=== PATIENT | female | born 1965 | race Caucasian/White ===

== ENCOUNTER 2020-07-17 17:41 | Emergency (ER) | payer OTHER, SELFPAY ==
--- NOTE | ~2020-07-17 | CT_ITS ---
EXAMINATION: CT cervical spine [facility] EXAM DATE: 07/17/2020 19:59 INDICATION: Neck pain left arm numbness. TECHNIQUE: Spiral CT of the cervical spine was performed without contrast. Axial images were reviewe d. Coronal and sagittal reformatted images cervical spine were also reviewed. The dose-length produc t (DLP) for this examination was 372.28 mGy-cm. The exposure was tailored according to patient size (auto mA exposure control), and iterative reconstruction (ASIR) was used as additional dose reduction technique. There is no prior study for comparison. FINDINGS: There is moderate loss of the disc height at C4-5 and C6-7. 2 mm anterolisthesis C3 on C 4. Mild disc disease C7-T3. There are no acute fractures identified. The odontoid process is intact. The lateral masses of C1 line up with C2. Prevertebral soft tissue and pre-dens space are within nor mal limits. Level by level evaluation: C2-C3: There is a mild diffuse disc bulge. Uncovertebral joint arthropathy: None. Facet joint arthropathy: Severe left. Neural foraminal stenosis: Mild to moderate left. Central canal stenosis: No stenosis. C3-C4: There is a mild diffuse disc bulge. Uncovertebral joint arthropathy: Mild to moderate left, mild right. Facet joint arthropathy: Severe left, mild right. Neural foraminal stenosis: Severe left. Central canal stenosis: No stenosis. C4-C5: There is a mild diffuse disc bulge. Uncovertebral joint arthropathy: Moderate right, mild left. Facet joint arthropathy: Moderate right, mild to moderate left . Neural foraminal stenosis: Moderate right, mild left. Central canal stenosis: Mild. C5-C6: There is a minimal diffuse disc bulge. Uncovertebral joint arthropathy: Mild to moderate left, mild right. Facet joint arthropathy: Moderate right, mild left. Neural foraminal stenosis: Minimal left. Central canal stenosis: No stenosis. C6-C7: There is a mild diffuse disc bulge. Uncovertebral joint arthropathy: Severe left, moderate to severe right. Facet joint arthropathy: Mild to moderate bilateral. Neural foraminal stenosis: Moderate to severe left, moderate right. Central canal stenosis: Mild. C7-T1: Disc does not extend beyond the endplate margin. Uncovertebral joint arthropathy: None. Facet joint arthropathy: Severe left. Neural foraminal stenosis: No stenosis. Central canal stenosis: No stenosis. IMPRESSION: Scattered multilevel cervical spondylosis, advanced arthritis at some joints. Reviewed, dictated and finalized at location G. IMPRESSION: Scattered multilevel cervical spondylosis, advanced arthritis at so me joints.
--- NOTE | ~2020-07-17 | XR_ITS ---
EXAMINATION: XR_CERV2-3V_CR EXAM DATE: 07/17/2020 18:08 INDICATION: No known recent injury provided at this time. Pain of the cervical spine. TECHNIQUE: Cervical spine frontal, lateral, lateral swimmers, and open-mouth odontoid projections. There is no prior study for comparison. FINDINGS: Straightening of normal cervical lordosis could be degenerative, positional or spasm. Ther e is no evidence of acute cervical fracture. The odontoid process is intact. Pre-dens space is norm al. Prevertebral soft tissue is normal. There are no soft tissue abnormalities identified. There i s moderate loss of the C4-5 and C6-7 disc height. Evidence of moderate uncovertebral joint arthropath y from C4 through C7, and moderate left facet arthropathy at C3-4. Less arthropathy at the other leve ls. The vertebral bodies are aligned. IMPRESSION: Cervical straightening. Up to moderate mid cervical spondylosis. Reviewed, dictated and finalized at location A.
[2020-07-17 17:43] VITALS: BP 212/75; PULSE 111; RESP 20; TEMP 36.6; O2SAT 97
--- NOTE | 2020-07-17 19:37 | PC.NURSE ---
EDMD presented to bedside.
--- NOTE | 2020-07-17 19:55 | PC.NURSE ---
Pt to ct via cart.
--- NOTE | 2020-07-17 19:59 | ED.GENADULT ---
HPI - General Adult General Chief complaint: Neck Pain/Injury Stated complaint: neck pain Time Seen by Provider: 07/17/20 19:23 History of Present Illness HPI narrative: Patient is a 55-year-old female who presents the emergency department with chief complaint of neck pain. The patient reports she has history of neck pain and gets trigger point injections by her orthopedic surgeon over in the [place] area. Patient reports that she lifted a 40 pound box of chlorine for the pool and reported after that she started having pain in her neck the patient states that the pain radiates to her left shoulder area and she has a little bit of a tingling sensation in her upper shoulder. The patient states the pain is worse with movement and improved with rest the patient states she applied a cool pack to the area and left it on too long and suffered a slight burn to her shoulder area. 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 Nursing and ancillary documentation was reviewed. [facility] Past Medical History Medical History Chronic pancreatitis Degenerative disc disease, cervical Essential (primary) hypertension GERD without esophagitis Osteoarthritis Pancreas divisum of [place] pancreas Surgical History Surgical History History of ERCP History of knee replacement (~2017) Left knee - 2017 Family History Family History Mother Hypertension Father Family history of lung cancer Social History Social History Smoking packs per day: 1 Smoking cigarettes per day: 20.0 Years smoked: 35 Smoking pack-years: 35.00 Smoking status: Current every day smoker Tobacco type: cigarettes Second hand tobacco smoke exposure: No Additional smoking assessment comments: consumes 1-9 cigarettes daily Alcohol intake: never Substance use: never Substance use type: does not use Gender identity (if verbalized by the patient): Female Exam Narrative: Exam Narrative: GENERAL: Well-appearing, well-nourished, and in no acute distress. HEAD: Normocephalic, atraumatic. EYES: PERRLA and EOMI. ENT: Nares clear, no rhinorrhea or epistaxis. Mucous membranes moist. NECK: Supple. There is tenderness to palpation in the upper shoulder/low neck CHEST: Clear to auscultation. No respiratory distress. HEART: Regular rate and rhythm. No murmur heard. Normal peripheral pulses. ABDOMEN: Soft, nontender, nondistended, normal active bowel sounds. EXTREMITIES: Normal range of motion. No edema. SKIN: Warm, dry, no rash. There is a first-degree burn present in the left shoulder area NEURO: No focal deficits. Alert and oriented x3. PSYCH: Normal mood and affect. Course Vital Signs Vital signs: Vital Signs Temperature 36.6 C 07/17/20 17:43 Pulse Rate 111 H 07/17/20 17:43 Respiratory Rate 20 07/17/20 17:43 Blood Pressure 212/75 H 07/17/20 17:43 Pulse Oximetry 97 07/17/20 17:43
--- NOTE | 2020-07-17 20:08 | PC.NURSE ---
Pt returned from ct.
[2020-07-17] MEDS: HYDROmorphone HCL INJ (*CRX) 1 MG/ML SYR IM (20:09)
[2020-07-17] MEDS: diazePAM INJ (*CRX) 10 MG/2 ML SYRINGE 5 MG IM (20:10)
--- NOTE | 2020-07-17 20:15 | PC.NURSE ---
Pt presents to ED with complaints or neck pain for the past three days. States pain is radiating down left shoulder and is rated 10/10 at this time. Pt noted with this chronic issue and receives trigger point injections. Per , pt lifted a 4 gallon bucket of pool chlorine from their truck on Saturday and pain has been persistent since. Pt alert and oriented x4 and resting on cart in its lowest position with call button and personal items within reach. States she missed her dose of metoprolol and BP is currently elevated. at bedside and both have been updated on poc. Pt advises to press call button for assistance.
[2020-07-17 20:19] VITALS: BP 181/71; PULSE 100; RESP 18; TEMP 36.8; O2SAT 95
--- NOTE | 2020-07-17 20:54 | PC.NURSE ---
Pt resting on cart with at bedside and is happy and smiling. Denies all pain and discomfort at this time and states she feels better. Pt alert and oriented x4 and in no obvious distress with stable vitals. Prepared from [facility].
[2020-07-17 20:55] VITALS: BP 142/52; PULSE 88; RESP 18; O2SAT 95
[2020-07-17 20:56] VITALS: BP 142/52; PULSE 88; RESP 18; O2SAT 95
== END 2020-07-17 20:57 | disposition home or self-care (01) ==
PROVIDERS: Emergency Provider Emergency Medicine; PCP Physician Assistant
DX: S16.1XXA Strain of muscle, fascia and tendon at neck level, initial encounter (principal); I10 Essential (primary) hypertension; K86.1 Other chronic pancreatitis; M50.30 Other cervical disc degeneration, unspecified cervical region; K21.9 Gastro-esophageal reflux disease without esophagitis; M19.90 Unspecified osteoarthritis, unspecified site; Z96.652 Presence of left artificial knee joint; F17.210 Nicotine dependence, cigarettes, uncomplicated; X50.9XXA Other and unspecified overexertion or strenuous movements or postures, initial encounter
CPT/HCPCS: 72040; 72125; 96372; 99284; J1170; J3360

== ENCOUNTER → 2021-05-11 09:30 | Outpatient (CLI) | payer OTHER, SELFPAY ==
[2021-05-11 11:08] LABS: SARS-CoV-2 RNA PCR Negative
== END ==
PROVIDERS: PCP Family Medicine; Visit Provider Physician Assistant
DX: Z20.822 Contact with and (suspected) exposure to COVID-19 (principal)
CPT/HCPCS: C9803; U0003; U0005

== ENCOUNTER 2021-05-25 16:10 | Emergency (ER) | payer OTHER, SELFPAY ==
[2021-05-25 16:12] VITALS: BP 150/77; PULSE 128; RESP 17; TEMP 36.2; O2SAT 97
--- NOTE | 2021-05-25 17:18 | ED.ABDPAIN ---
HPI - Abdominal Pain General Chief Complaint: Abdominal Pain Stated Complaint: abd pain, n/v Time Seen by Provider: 05/25/21 17:17 Source: patient Mode of arrival: ambulatory Limitations: no limitations History of Present Illness HPI narrative: Patient is a 56-year-old female who presents to the ED with report of N/V/D. Patient reports she was around her great nephew this past weekend who she believes had a stomach bug with N/V/D. She then developed diarrhea on Saturday night. She reports having several episodes of diarrhea per day. No blood in the stool. She also reports having nausea and vomiting and states she is unable to keep down any food or fluid. No blood in the vomit. Patient reports having mild cramping in her lower abdomen from the vomiting and diarrhea, but also reports having sharp left upper abdominal pain. Patient has history of pancreatic divisum and sphincter of Oddi dysfunction. She sees a specialist for this at [facility]. She does report her left upper abdominal pain feels similar to her previous episodes of pancreatitis. Last episode was around 1 year ago. No fever, chills, chest pain, shortness of breath, urinary sx's. Patient does feel like her heart is beating fast. She takes Metoprolol daily and took this today, but is unsure if she was able to keep it down. Related Data Home Medications Medication Instructions Recorded Confirmed dicyclomine 10 mg capsule 10 mg PO TID cap 08/25/19 07/20/20 [id number] 2 cap PO TID cap 08/25/19 07/20/20 25,000-79,000-105,000 unit capsule,delayed rel pantoprazole 40 mg tablet,delayed 40 mg PO QAM 08/25/19 07/20/20 release Allergies Allergy/AdvReac Type Severity Reaction Status Date / Time tobramycin Allergy Unknown Rash Verified 05/25/21 18:01 oxycodone AdvReac Severe pancreatiti Verified 05/25/21 18:01 s lidocaine patch - [facility] Allergy Severe Rash Uncoded 07/20/20 11:34 brand Review of Systems Review of Systems: CONSTITUTIONAL: Denies fever, chills, or sweats. CARDIOVASCULAR: Reports palpitations. Denies chest pain. RESPIRATORY: Denies dyspnea. GASTROINTESTINAL: Reports lower abd cramping, LUQ abdominal pain, nausea, vomiting, and diarrhea. Denies rectal bleeding, hematemesis. GENITOURINARY: Denies dysuria or hematuria. MUSCULOSKELETAL: Denies back pain, joint pain, or myalgia. NEUROLOGIC: Denies headache, numbness, or weakness. All systems reviewed & are unremarkable except as noted in HPI and below PMFSH Past Medical History Medical History Chronic pancreatitis Degenerative disc disease, cervical Essential (primary) hypertension GERD without esophagitis Osteoarthritis Pancreas divisum of [place] pancreas Sphincter of Oddi dysfunction Surgical History Surgical History History of ERCP History of knee replacement (~2016) Left knee - 2017 Family History Family History Mother Hypertension Father Family history of lung cancer Social History Social History Smoking packs per day: 1 Smoking cigarettes per day: 20.0 Years smoked: 35 Smoking pack-years: 35.00 Smoking status: Current every day smoker Tobacco type: cigarettes Second hand tobacco smoke exposure: No Additional smoking assessment comments: consumes 1-9 cigarettes daily Alcohol intake: never Substance use: never Substance use type: does not use Gender identity (if verbalized by the patient): Female Exam Narrative: GENERAL: Mildly ill appearing, well-nourished, non-toxic, in no acute distress. HEAD: Normocephalic, atraumatic. EYES: EOMI, conjunctivae clear bilaterally. THROAT: Pharynx clear, no exudate. MMs dry. NECK: Supple. No adenopathy, no masses. RESPIRATORY: Airway patent, respirations
[2021-05-25 17:45] LABS: Basophils Absolute Auto 0.1 K/mm3 (0.0-0.1); Basophils Percent Auto 0.5 % (0.2-1.2); Eosinophils Percent Auto 0.1 % (0-4.4); Hematocrit 54.6 % (37.0-47.0); Hemoglobin 18.1 g/dL (12.0-15.0); Immature Granulocyte Absolute 0.03 K/mm3 (0.00-0.031); Immature Granulocyte Percent A 0.3 % (0-0.5); Lymphocytes Absolute Auto 1.78 K/mm3 (0.9-3.2); Lymphocytes Percent Auto 16.1 % (18.3-44.2); Mean Corpuscular HGB Conc 33.2 g/dl (32-36); Mean Corpuscular Volume 87.4 fl (80-100); Monocytes Absolute Auto 1.5 K/mm3 (0.1-0.6); Monocytes Percent Auto 13.7 % (2.6-8.5); Neutrophils Absolute Auto 7.7 K/mm3 (1.3-6.7); Neutrophils Percent Auto 69.3 % (45.5-73.1); Platelet Count Result 303 k/mm3 (150-375); Red Blood Count 6.25 M/mm3 (4.2-5.4); Red Cell Distribution Width 15.4 % (11.5-14.5); White Blood Count 11.1 K/mm3 (4.5-10.0)
[2021-05-25] MEDS: SODIUM CHLORIDE 0.9% IV 1,000 ML 999 ML IV CONT ×2 (17:51→19:37)
[2021-05-25] MEDS: ONDANSETRON INJ 4 MG/2 ML VIAL IV PUSH (17:52)
[2021-05-25 17:56] LABS: Alanine Aminotransferase 24 U/L (4-35); Albumin Level 4.9 g/dL (3.5-5.1); Alkaline Phosphatase 149 U/L (38-126); Anion Gap 16 mmol/L (8-16); Aspartate Amino Transferase 38 U/L (14-36); Bilirubin,Total 0.5 mg/dL (0.2-1.3); Blood Urea Nitrogen 25 mg/dL (7-17); Calcium 9.7 mg/dL (8.4-10.2); Carbon Dioxide 10 mmol/L (22-30); Chloride 111 mmol/L (98-107); Estimated CRCL calculation 29 ml/min; Estimated Glomerular Filt Rate 27; Glucose 132 mg/dL (65-110); Lipase 177 U/L (23-300); Sodium 137 mmol/L (137-145)
[2021-05-25 18:00] VITALS: BP 152/72; PULSE 99; RESP 20; O2SAT 97
[2021-05-25 19:01] VITALS: BP 150/73; PULSE 93; RESP 23; O2SAT 96
--- NOTE | 2021-05-25 19:33 | PC.NURSE ---
Report from Cat/Anil
[2021-05-25 19:43] LABS: Add Urine Microscopic? YES; Appearance Urine Cloudy (Clear); Bacteria Urine Trace /hpf; Bilirubin Urine Negative (Negative); Blood Urine 1+ (Negative); Color Urine Yellow (Yellow); Glucose Urine UA Negative (Negative); Hyaline Casts Urine 50+ /lpf; Ketones Urine Negative (Negative); Leukocyte Esterase Ur Negative LEU/UL (Negative); Mucus Urine Rare /lpf; Nitrate Urine Negative (Negative); Protein Urine 2+ mg/dL (Negative); Specific Grav Ur 1.024 (1.001-1.035); Squamous Epithelial Cell Urine Few /hpf (Few); Urobilinogen Urine Negative mg/dL (<2.0)
--- NOTE | 2021-05-25 19:57 | PC.NURSE ---
Pt updated waiting on IV fluids to infuse. Pt and updated. Pt has no other needs at this time..
[2021-05-25 20:51] LABS: Anion Gap 8 mmol/L (8-16); Blood Urea Nitrogen 24 mg/dL (7-17); Calcium 7.9 mg/dL (8.4-10.2); Carbon Dioxide 14 mmol/L (22-30); Chloride 115 mmol/L (98-107); Estimated CRCL calculation 45 ml/min; Estimated Glomerular Filt Rate 46; Glucose 99 mg/dL (65-110); Sodium 137 mmol/L (137-145)
[2021-05-25] MEDS: PROMETHAZINE HCL 25 MG/ML AMPUL 12.5 MG IV PUSH (21:47)
[2021-05-25 21:51] VITALS: BP 151/68; PULSE 77; RESP 18; O2SAT 93
== END 2021-05-25 22:02 | disposition home or self-care (01) ==
PROVIDERS: Physician Assistant; Emergency Provider Emergency Medicine; PCP Family Medicine
DX: R11.2 Nausea with vomiting, unspecified (principal); R19.7 Diarrhea, unspecified; R79.89 Other specified abnormal findings of blood chemistry; K86.1 Other chronic pancreatitis; K83.4 Spasm of sphincter of Oddi; I10 Essential (primary) hypertension; K21.9 Gastro-esophageal reflux disease without esophagitis; M19.90 Unspecified osteoarthritis, unspecified site; Z96.652 Presence of left artificial knee joint; F17.210 Nicotine dependence, cigarettes, uncomplicated; R82.998 Other abnormal findings in urine
CPT/HCPCS: 36415; 80048; 80053; 81001; 83690; 85025; 87077; 87086; 87088; 87186; 96361; 96365; 96375; 99284; J0131; J2405; J2550; J7030

== ENCOUNTER 2021-12-30 08:03 | Emergency (ER) | payer OTHER, SELFPAY ==
--- NOTE | 2021-12-30 08:06 | ED.SKABFB ---
HPI - Skin/Abscess/Foreign Bdy General Chief complaint: Skin/Abscess/Foreign Body Stated complaint: rash around whole body Time Seen by Provider: 12/30/21 08:06 Source: patient Mode of arrival: ambulatory Limitations: no limitations History of Present Illness HPI narrative: Gladis is a 48-year-old female patient presenting to the clinic today with complaints of rash all over her body. She reports symptoms have been ongoing x2-3 weeks. She denies any fever chills. Reports that she has been under some stress here lately. She does have a fever blister to the left upper lip. Denies any environmental changes, new foods, or new medications. Is concerned that she may have scabies. Related Data Home Medications Medication Instructions Recorded Confirmed [id number]-wadwcsbi-[id number] 2 cap PO TID 08/25/19 05/31/21 25,000-79,000-105,000 unit capsule,delayed rel (Zenpep) pantoprazole 40 mg tablet,delayed 40 mg PO QAM 08/25/19 05/31/21 release Allergies Allergy/AdvReac Type Severity Reaction Status Date / Time tobramycin Allergy Unknown Rash Verified 05/31/21 11:27 oxycodone AdvReac Severe pancreatiti Verified 05/31/21 11:27 s lidocaine patch - [facility] Allergy Severe Rash Uncoded 07/20/20 11:34 brand Review of Systems Review of Systems: Pertinent positives per HPI. Patient denies any fever, chills, rash, headache, visual changes, dizziness, cough, runny nose, sore throat, shortness of breath, chest pain, palpitations, nausea, vomiting, diarrhea, constipation, abdominal pain, or any urinary issues. [facility] Past Medical History Medical History Aortic regurgitation Chronic pancreatitis Degenerative disc disease, cervical Essential (primary) hypertension GERD without esophagitis Mitral valve insufficiency Osteoarthritis Pancreas divisum of [place] pancreas Sphincter of Oddi dysfunction Surgical History Surgical History History of ERCP History of knee replacement (~2016) Left knee - 2017 Family History Family History Mother Hypertension Father Family history of lung cancer Social History Social History Smoking packs per day: 1 Smoking cigarettes per day: 20.0 Years smoked: 35 Smoking pack-years: 35.00 Smoking status: Former smoker Tobacco type: cigarettes Second hand tobacco smoke exposure: No Alcohol intake: never Substance use: never Substance use type: does not use Gender identity (if verbalized by the patient): Female Comments At the time of my signature, I reviewed and agree with the nursing past medical, surgical, social, and family history. There is no relevant family history pertinent to the patient complaint. Exam Narrative: General: Well-developed, well nourished, in no apparent distress Head: Normocephalic, atraumatic. Cardio: Regular rate and rhythm, s1 and s2 normal, no murmur appreciated. Resp: Clear to auscultation bilaterally, no rhonchi, rales, wheezing or rubs. Integumentary: [employer], warm, and dry, intact without lesion, no rashes. Dry itchy skin, palms are red and itchy Course Course Emergency Course: Portions of this record may have been created with voice recognition software. Level of Care: Express Care Visit Vital Signs Vital signs: Vital Signs Temperature 36.5 C 12/30/21 08:14 Pulse Rate 88 12/30/21 08:14 Respiratory Rate 18 12/30/21 08:14 Blood Pressure 163/74 H 12/30/21 08:14 Pulse Oximetry 99 12/30/21 08:14 Oxygen Delivery Room Air 12/30/21 08:14 Temperature 36.5 C 12/30/21 08:14 Pulse Rate 88 12/30/21 08:14 Respiratory Rate 18 12/30/21 08:14 Blood Pressure 163/74 H 12/30/21 08:14 Pulse Oximetry 99 12/30/21 08:14 Oxygen Delivery Room Air
[2021-12-30 08:14] VITALS: BP 163/74; PULSE 88; RESP 18; TEMP 36.5; O2SAT 99
== END 2021-12-30 08:30 | disposition home or self-care (01) ==
PROVIDERS: Emergency Provider Nurse Practitioner Family; PCP Family Medicine
DX: L85.3 Xerosis cutis (principal); I10 Essential (primary) hypertension; Z87.891 Personal history of nicotine dependence
CPT/HCPCS: 99213; G0463

== ENCOUNTER → 2022-06-25 08:13 | Outpatient (CLI) | payer OTHER, SELFPAY ==
--- NOTE | ~2022-06-25 | XR_ITS ---
EXAMINATION: XR sacroiliac joints min 3V INDICATION: Sacroiliitis, not elsewhere classified TECHNIQUE: Three views of the sacroiliac joints are obtained. COMPARISON: None available FINDINGS: Bone alignment is normal. There is no fracture. There is no abnormal sclerosis or erosion o f the sacroiliac joints. Severe lower lumbar spondylosis is noted. IMPRESSION: 1. No acute osseous abnormality. Reviewed, dictated and finalized at location B.
--- NOTE | ~2022-06-25 | XR_ITS ---
EXAMINATION: XR lumbar spine min 4V DATE: 06/25/2022 08:46 INDICATION: Low back pain, unspecified. TECHNIQUE: 5 views of lumbar spine were obtained. COMPARISON: None. FINDINGS: There is 8 degrees levocurvature of thoracolumbar spine. Vertebral body heights are normal. There is 3 mm retrolisthesis of L1 on L2. There is severely decreased disc height at L1-L2, moderate ly decreased disc height at L2-L3 and L3-L4, severely decreased disc height at L4-L5, and mildly decr eased disc height at L5-S1. There is multilevel severe facet joint osteoarthritis. Surgical clips in the right upper quadrant are likely from cholecystectomy. IMPRESSION: 1. Severe lumbar spondylosis. Reviewed, dictated and finalized at location A.
--- NOTE | ~2022-06-25 | XR_ITS ---
EXAMINATION: XR hip LT 2V w AP pelvis INDICATION: Left hip pain TECHNIQUE: AP view the pelvis and two views of the left hip are obtained. COMPARISON: None available FINDINGS: Bone alignment is normal. There is no fracture. There is mild osteoarthritis of hips. IMPRESSION: 1. Mild osteoarthritis without acute osseous abnormality. Reviewed, dictated and finalized at location B.
== END ==
PROVIDERS: PCP Family Medicine; Visit Provider Family Medicine
DX: M54.50 Low back pain, unspecified (principal); M46.1 Sacroiliitis, not elsewhere classified; M25.559 Pain in unspecified hip; M43.06 Spondylolysis, lumbar region; M16.12 Unilateral primary osteoarthritis, left hip
CPT/HCPCS: 72110; 72202; 73502

== ENCOUNTER 2023-08-31 11:39 | Outpatient (CLI) | payer OTHER, SELFPAY ==
--- NOTE | ~2023-08-31 | MR_ITS ---
EXAMINATION: MR lumbar spine wo con DATE: 08/31/2023 12:35 INDICATION: Lumbar spinal stenosis. Low back pain radiating down the left leg. TECHNIQUE: Magnetic resonance imaging (MRI) of the lumbar spine was performed without intravenous con trast. Sequences included sagittal T2-weighted FSE, sagittal T2-weighted FS FSE, sagittal T1-weighted FSE, and axial T2-weighted FSE. COMPARISON: Lumbar spine radiographs 07/25/2023 FINDINGS: There is 8 degrees levocurvature of thoracolumbar spine. There is 3 mm retrolisthesis of L1 on L2 and L2 on L3. Vertebral body heights are normal. There is moderately decreased disc height at T12-L1, severely decreased disc height at L1-L2 and L2-L3, moderately decreased disc height at L3-L4, severely decreased disc height at L4-L5, and mildly decreased disc height at L5-S1. The distal spina l cord signal intensity is normal. The conus medullaris is at L1-L2. The following disc levels are sp ecifically discussed: L1-L2: The disc is bulging. There is moderate bilateral facet joint osteoarthritis. There is moderate right and mild left neural foraminal stenosis. There is mild central canal stenosis. L2-L3: The disc is bulging. There is severe bilateral facet joint osteoarthritis. There is mild bilat eral neural foraminal stenosis. There is mild central canal stenosis. L3-L4: The disc is bulging. There is severe bilateral facet joint osteoarthritis. There is mild bilat eral neural foraminal stenosis. There is mild central canal stenosis. L4-L5: The disc is bulging. There is moderate right and severe left facet joint osteoarthritis. There is mild right and moderate left neural foraminal stenosis. There is mild central canal stenosis. L5-S1: The disc is bulging and has an annular fissure. There is severe bilateral facet joint osteoart hritis. There is mild bilateral neural foraminal stenosis. There is no central canal stenosis. IMPRESSION: 1. Severe lumbar spondylosis. Reviewed, dictated and finalized at location E.
== END 2023-08-31 11:40 ==
LOC: MICIMG 11:40
PROVIDERS: PCP Family Medicine; Visit Provider Orthopaedic Surgery
DX: M43.06 Spondylolysis, lumbar region (principal)
CPT/HCPCS: 72148

== ENCOUNTER 2024-12-25 13:17 | Emergency (ER) | payer OTHER, SELFPAY ==
--- NOTE | ~2024-12-25 | XR_ITS ---
Examination: XR ankle LT min 3V, XR foot LT min 3V Clinical History: Fall L foot injury Comparison: None Technique: 4 views left ankle, 4 views left foot Findings/impression: Left ankle: 1. No fracture or dislocation left ankle. 2. Visualized metatarsal fracture, see below. Left foot: 1. Nondisplaced FRACTURE fifth metatarsal base. 2. No other fracture identified left foot. Reviewed, dictated and finalized at location R.
--- NOTE | ~2024-12-25 | XR_ITS ---
EXAMINATION: XR knee LT 3V, 12/25/2024 14:39 CDT HISTORY: LT KNEE PAIN TO THE TOUCH W/ SLIGHT BRUSING AFTER FALL TODAY COMPARISON: No comparisons available. Findings: No acute fracture or malalignment. Arthroplasty intact Soft tissues unremarkable. Impression: No acute fracture or malalignment. Reviewed, dictated and finalized at location P. Impression: No acute fracture or malalignment.
[2024-12-25 13:19] VITALS: BP 151/59; PULSE 76; RESP 14; TEMP 36.6; O2SAT 95
--- OUTSIDE RECORDS SUMMARY | 2024-12-25 13:21 | XMS_ITS | Clinical Summary ---
Author Organization [facility] [place] [address] Address [address] [place] [address] Care Team Providers Care Rodent Exterminator Name Role Phone Yaya Pardo MD Unavailable [phone] Latosha Lucero MD Primary Care Provider [phone] Allergies Active Allergy Reactions Criticality Noted Date Comments Essential Oils Rash Medium 03/24/2018 Medications metoprolol XL (TOPROL-XL) 100 mg 24 hr tablet Take 1 tablet (100 mg total) by mouth daily [address] (PROTONIX) 40 mg EC tablet Take 1 tablet (40 mg total) by mouth daily 8 Active pancrelipase (CREON) 6,000 units of lipase capsuleIndication s:exocrine pancreatic insufficiency Take by mouth. A ctive dicyclomine (BENTYL) 10 mg capsule Take 1 capsule (10 mg total) by mouth 4 (four) times a day before meals and nightly Active cetirizine (ZyrTEC) 10 mg tablet Take 1 tablet (10 mg total) by mouth daily Active acetaminophen (TYLENOL) 325 mg tablet Take 2 tablets (650 mg total) by mouth every 4 (four) hours as needed for headaches or fever 30 tablet 0 Active atorvastatin (LIPITOR) 40 mg tablet Take 1 tablet (40 mg total) by mouth nightly 30 tablet 11 0 Active Additional Information Patient not taking.Reported on 05/02/2022 bempedoic acid 180 mg tablet Take 1 tablet by mouth daily 90 tablet 6 4 Active Active Problems Problem Noted Date Diagnosed Date Mitral valve insufficiency and aortic valve insu fficiency 03/24/2018 Dyslipidemia 03/24/2018 Inappropriate sinus tachycardia 03/24/2018 Chronic biliary pancreatitis 03/24/2018 Pancreatic divisum 03/24/2018 Surgical History Surgery Date Site/Laterality Comments TOTAL KNEE ARTHROPLASTY COLONOSCOPY 2014 UPPER GASTROINTESTINAL ENDOSCOPY 2016 CHOLECYSTECTOMY KNEE ARTHROSCOPY W/ MEDIAL C OLLATERAL LIGAMENT (MCL) REPAIR Right Medical History Medical History Date Comments Acid indigestion GERD (gastroesophageal reflux disease) Diverticulosis Colon polyp Pancreatitis Hyperlipidemia Aguilar esophagus Irritable bowel syndrome Arthritis Family History Medical History Relation Name Comments Cancer Father Diabetes Maternal Grandfather Hypertension Mother Relation Name Status Comments Father (Age 74) Maternal Grandfather Mother Alive Sister Alive Social History Tobacco Use Types Packs/Day Years Used Date Smoking Tobacco: Former Cigarettes 0.3 30 Smokeless Tobacco: Never Tobacco Cessation:Counseling Given: Not Answered Alcohol Use Standard Drinks/Week Comments No 0 (1 standard drink = 0.6 oz pur e alcohol) Personal Safety Answer Date Recorded Getting School Help Needed Not on file 02/12 Comments No Sex and Gender Information Value Date Recorded Sex Assigned at Not on file Legal Sex Female 10:17 AM TRIM OPERATOR Gender Identity Not on file Sexual Orientation Not on file Obstetrics History Last Filed Vital Signs Vital Sign Reading Time Taken Comments Blood Pressure 118/70 05/08/2023 8:21 AM TRIM OPERATOR Pulse 72 05/08/2023 8:21 AM TRIM OPERATOR Temperature 36.8 C (98.2 F) 10/14/2019 11:35 AM CDT Respiratory Rate 20 10/14/2019 11:35 AM CDT Oxygen Saturation 98% 05/08/2023 8:21 AM TRIM OPERATOR Inhaled Oxygen Concentration - - Weight 69.9 kg (154 lb) 05/08/2023 8:21 AM TRIM OPERATOR Height 162.6 cm (5' 4) 05/08/2023 8:21 AM TRIM OPERATOR Body Mass Index 26.43 05/08/2023 8:21 AM TRIM OPERATOR Plan of Treatment Health Maintenance Due Date Last Done Comments Cervical Cancer Screening 1965 Depression Screening 1965 Hepatitis C Screening 1965 Hepatitis B Screening 1981 Regular Well Visit/Exam 18-64 1981 Zoster Vaccine (1 of 2) 2013 Breast Cancer Screening-Mammogram 08/27/2013 08/27/2012 Influenza Vaccine (#1) 2024 DTaP/Tdap/Td Vaccine (2 - Td or Tdap) 08/24/2029 08/25/2019 Colon Cancer Screening-Colonoscopy 09/30/2029 10/01/2019, 03/17/2014 Colon Cancer Screening-CT Colonography Discontinued 10/01/2019, 03/17/2014 Colon Cancer Screening-DNA Stool Discontinued 10/01/2019, 03/17/2014 Colon Cancer Screening-FIT Discontinued 09/30, 03/17/2014 Colon Cancer Screening-Sigmoidoscopy Discontinued 10/01/2019, 03/17/2014 Pneumococcal vaccine <65 Aged Out No longer eligible based on patient's age to complete this topic Medical Devices Explanted Type Area Exercise Scientist Device Identifier Shelf Expiration Date Model / Serial / Lot [employer] 6555 [place] Flexi-Stent 5fr 9cm Small Pigtail Flexible .035in Stent - [id number] Implanted:Qty : 1 on 10/12/2019 by Yaya Pardo MD at [facility] Explanted:Qty : 1 on 10/14/2019 by Yaya Pardo MD at [facility] Stent N/A: Pancreas [employer] 04/03/2024 [id number] / / [id number] Conmed [place] [id number] Dud[place] Viabil 10mm 8.5fr 6cm 200cm Fully Covered Self Expand Pull - [id number] - [id number] Implanted:Qty : 1 on 10/12/2019 by Yaya Pardo MD at [facility] Explanted:Qty : 1 on 10/14/2019 by Yaya Pardo MD at [facility] Stent N/A: Bile Duct [employer]ney 06/15/2022 [id number] / [id number] / Procedures Procedure Name Priority Date/Time Associated Diagnosis Comments COLONOSCOPY 10/01/2019 9:46 AM CDT from Last 3 Months or Most Recently Relevant to Health Maintenance Results * COLONOSCOPY (10/01/2019 9:46 AM CDT) Anatomical Region Laterality Modality Other Narrative Procedure Note Yaya Pardo MD - 10/01/2019 9:46 AM CDT ENDOSCOPY LAB Patient Name: Gladis Ochoa Procedure Date: 10/01/2019 9:46 AM Admit Type: Outpatient Room: [facility] Date of : 1965 Instrument Name: [id number] Gender: Female Note Status: Finalized Procedure: Colonoscopy Indications: High risk colon cancer surveillance: Personal historyof colonic polyps, Last colonoscopy: March 2014 Providers: Yaya Pardo M.D. Referring MD: Dina Mcmullen M.D. Medicines: Propofol per Anesthesia Complications: No immediate complications. Estimated Blood Loss: Estimated blood loss: none. Procedure: Pre-Anesthesia Assessment: - Pre-procedure physical examination revealed no contraindications to sedation. - The risks and benefits of the procedure and thesedation options and risks were discussed with the patient. All questions were answered and informed consent wasobtained. The benefits, risks and alternatives of the procedureand sedation were discussed and informed consent wasobtained. All questions were answered. Please refer to the signed informed consent document in the medical record. The colonoscopy was performed without difficulty. Thepatient tolerated the procedure well. The quality of the bowel preparation was good. The quality of the bowelpreparation was evaluated using the BBPS ([place] Bowel Preparation Scale) with scores of: Right Colon = 3 (entire mucosaseen well with no residual staining, small fragments ofstool or opaque liquid), Transverse Colon = 3 (entire mucosa seen well with no residual staining, small fragments of stool or opaque liquid) and Left Colon = 3 (entiremucosa seen well with no residual staining, small fragments of stool or opaque liquid). The total BBPS score equals 9. The bowel preparation used was SUPREP. Bowel prep was administered using a split dose. Bowel prep was administered using a split dose. The scope was passed under direct vision. The Colonoscope was introduced through the anus and advanced to the the cecum,identified by appendiceal orifice and ileocecal valve. Findings: A 12 mm polyp was found in the appendiceal orifice. The polyp was sessile. The polyp was removed with a hot snare in two bites.Resection and retrieval were complete. Two sessile polyps were found in the sigmoid colon. The polyps were 6mm in size. These polyps were removed with a jumbo cold forceps.Resection and retrieval were complete. Internal hemorrhoids were found during retroflexion. The hemorrhoids were moderate. Impression: - One 12 mm polyp at the appendiceal orifice, removedwith a hot snare and retrieved. - Two 6 mm polyps in the sigmoid colon, removed with a jumbo cold forceps and retrieved. - Internal hemorrhoids. Recommendation: - Await pathology results. - Repeat colonoscopy date to be determined afterpending pathology results are reviewed for surveillance. Electronically signed by Yaya Pardo MD Yaya Pardo M.D. 10/01/2019 11:50:30 AM Number of Addenda: 0 Note Initiated On: 10/01/2019 9:46 AM Scope In: Scope Out: us Yaya Pardo MD ENDOSCOPY PROCEDURES Final Result from Last 3 Months or Most Recently Relevant to Health Maintenance Advance Directives For more information, please contact: [phone] * Full Code (Latest Code Status on File) Date Activated Date Inactivated Comments 10/13/2019 9:24 AM 10/14/2019 6:47 PM Care Teams Rodent Exterminator Relationship Specialty Start Date End Date Latosha Lucero MD [address] [place] [address] PCP - General Family Medicine 12/28/20 Yaya Pardo MD [address] [place] [address] Consulting Physician Gastroenterology 10/14/19
--- OUTSIDE RECORDS SUMMARY | 2024-12-25 13:21 | XMS_ITS | Patient Health Record ---
Author Organization [facility] Address [address] [place] [address] Care Team Providers Care Die Reamer Name Role Phone Latosha Lucero MD Primary Care Provider Felecia HALL PIPING MANAGER, ROSSY Unavailable Allergies No Known Allergies Reason For Referral No Information Medications Medication SIG (Take, Route, Frequency, Duration) Notes Start Date End Date Status Atorvastatin Calcium 20 MG 1 tablet Orally Once a day Not-Taking Zenpep 94768-19710 UNIT TAKE 2 CAPSULES BY MOUTH WITH MEALS AND 1 CAPSULE WITH SNACKS DIRECTED; Duration: 90 days Active Pantoprazole Sodium 40 MG TAKE 1 TABLET BY MOUTH ONCE DAILY Orally Once a day; Duration: 90 days Active Vitamin E Active Dicyclomine HCl 10 MG 2 capsules Orally Three times a day; Duration: 30 days Needs office visit for refills Active Metoprolol Tartrate 100 MG 1 tablet with food Orally Twice a day; Duration: 30 day(s) Active ZyrTEC 10 MG 1 tablet Orally Once a day Active Vitamin B12 Active Ondansetron 4 MG DISSOLVE 1 TABLET ON THE TONGUE EVERY 6 HOURS Orally Once a day; Duration: 30 days Needs office visit for refills Active Vitamin D Active Social History Tobacco Use: Social History Observation Description Date Details (start date - stop date) Current Smoker NA - NA Tobacco Use/Smoking Question Answer Notes Are you a current smoker How often do you smoke cigarettes? every day How many cigarettes a day do you smoke? 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 Plan Of Treatment Pending Test Test Name Order Date Colonoscopy 09/24/2019 Colonoscopy 01/18/2023 Endoscopic Retrograde Cholangiopancreato graphy (ERCP) 09/25/2019 Esophagogastroduodenoscopy (EGD) 019 Esophagogastroduodenoscopy (EGD) 020 Insurance Providers Payer Name Payer Address Payer Phone Subscriber Number Group Number Insured Name Patient Relationship to Insured Coverage Start Date Coverage End Date [facility] [address] [place], [place] [id number] Deann deepika Nic Spouse - patient is the spouse of the insured Medical (General) History Medical History History ICD Code Anxiety Arthritis Hx colon polyps GERD Aguilar's Biliary dyskinesia Papillary stenosis and pancreas divisum IBS Surgical History Surgery Date(Month/Year) Cholecystectomy:Lap with IOC mild chronic cholecystitis 08/23/2009 Colonoscopy 03/17/14 Dr. Jovany hong Single colon polyp, resected. Diverticulosis and internal hemorrhoids. Path c/w tubular adenoma. Repeat 5 yrs. 03/17/[address] Pardo 05/06/15 es ophageal mucosal changes s/o Barretts esophagus. Path-- stomach- intestinal metaplasia. Esophagus with squamocolumnar mucosa with intestinal metaplasia, neg dysplasia. Repeat EGD 3 yrs. 05/06/[address] Michaels 01/2010 Norm al duodenum. Non-bleeding erythematous gastropathy. Bile in the lower third of the esophagus. Esophageal mucosal variant. SELINA neg. Path c/w reflux esophagitis EGD/EUS 01/20/14 Dr. Praful HERNANDEZ grade B reflux esophagitis, gastric erythema and non bleeding erosive gastropathy. Pancreatic abnormalities, lobularity, may represent mild early chronic pancreatitis. Path- chronic gastritis with intestinal 01/20/2014 metaplasia, neg for HP. Assembly Machine Tender beto esophagitis c/w Aguilar's. Repeat EGD [address] Pardo Biliary pa pillary stenosis with mild recurrence treated with extension of the previous bililary sphincterotomy. Pancreas divisum. treated with minor papilla sphincterotomy. Dual duct protective stents placed with removal 11/16/13. 11/13/[address] Carlos Michaels Exam suspicious for biliary papillary stenosis, acquired. Treated with biliary sphincterotomy and biliary stenting. Exam was otherwise Nl. 06/08/[address] Carlos Michaels Bili ling stent removal. Biliary stricture was not seen.Normal post-sphincterotomy cholangiogram. 06/28/2010 ERCP 12/04/10 Dr. Edvin Millan iliary papillary stenosis with minimal recurrence treated with extension of the previous bililary sphincterotomy. Pancreas divisum. treated with minor papilla s phincterotomy. Dual duct protective stents placed with removal 12/06/10. Knee replacement 2016 Knee surgery Tubal ligation EGD [facility]per[facility] 05/2018 Normal, gastric and duo bx neg colonoscopy and EGD - 12mm p olyp, and 2 6mm polyp, Barretts esophagus. needing repeat in 2022 2019 ERCP [facility]per[facility]- biliary papil tricia stenosis treated with extension of previous sphincterotomy, pancreas divisum treated with ext of previous minor sphincter, dual stenting performed and removed 10/1310/12/19 colon/EGD Aliperti: single c olon polyp (sessile serrated tubular adenoma), diverticulosis, hemorrhoids-. EGD-gastritis- repeat EGD/colon in 3 years 02/06/23
--- OUTSIDE RECORDS SUMMARY | 2024-12-25 14:48 | XMS_ITS | Data Portability ---
Author Organization [facility] Address [address] [place] [address] Care Team Providers Care Speech Writer Name Role Phone TRIPP JOSE Primary Care Provider Assessment Encounter Date Assessment Date Assessment LastModified by Organization Details LastModified Time 06/07/2020 06/07/2020 healthy female exam/menopause pap done mammogram ordered and encouraged colonoscopy due 2022 dexa baseline around 60-65 Encouraged weight bearing exercise and 1500mg daily of Calcium with Vitamin D mirena due out anytime, discussed effective until 7 years. Likely postmenopausal, will not need replacement, will schedule removal. FU 1 year or prn [email or web address] Not available 06/11/2020 10:26:15 10/13/2021 10/13/2021 iud removed FU wwe [email or web address] Not available 10/13/2021 13:08:29 01/23/2022 01/23/2022 healthy female exam/menopause patient declines std testing pap due 2023 mammogram ordered and VERY STRONGLY ENCOURAGED colonoscopy due next year- polyps dexa baseline around 58 Encouraged weight bearing exercise and 1500mg daily of Calcium with Vitamin D FU 1 year or prn [email or web address] Not available 01/23/2022 13:41:15 02/19/2022 02/19/2022 repap insufficient cells no charge [email or web address] Not available 02/19/2022 12:01:41 Plan of Treatment Reminders Order Date Submit Date Provider Last Modified By Organization Details Last Modified Time Details Appointments None record ed. Lab None record ed. Referral None record ed. Procedures None record ed. Surgeries None record ed. Imaging None record ed. Medication Orders None record ed. Patient TargetsNo targets recorded. Patient InstructionsNo instructions recorded. Reason for Referral None Reported. Results Created Date Observation Date Name Description Value Unit Range Abnormal Flag Note LastModifiedBy Organization Detail LastModifiedTime 06/08/19 21 06/07/2020 pap, IG Pap test SEE RESULT S BELOW CASE REPOR T: Cytol ogy Gynec ologi tila Repor t Case: [id number] Autho rosales hoover Provi edwin: Maryellen Núñez MD Colle cted: 06/07 1626 Order ing Locat ion: [place] [facility] Recei shy: 06/08 0943 First Scree n: Atif lundberg, Bryant langley, CT Speci men: Scree lucinda Pap - Image d, Cervi x STATE MENT OF ADEQU ACY: Satis facto ry for evalu ation Trans forma tion zone compo nent prese nt FINAL DIAGN OSIS: Negat john for Squam ous Intra epith elial Lesio n Elect bessy min anais d by Atif lundberg, Bryant langley, CT on 021 at 7:32 PM ----- ----- ----- ----- ----- ----- ----- ----- ----- ----- ----- ----- ----- ----- ----- ----- ----- ---- HPV RESUL TS: HPV mRNA E6/E7 : No HPV mRNA Detec blake NOTE: This high risk HPV mRNA assay detec ts fourt een high- risk HPV types (16, 18, 31, 33, 35, 39, 45, 51, 52, 56, 58, 59, 66, 68) witho ut diffe renti ation . CHART ABLE COMME NT: Note: This speci men was revie wed by a Cytot echno logis t and/o r Patho logis t (as indic ated in this repor t) after evalu ation using the Thinp rep Imagi ng Syste m. CLINI TILA INFOR MATIO N: Menst rual Statu s: LMP (if appli cable ): Clini tila Histo ry/Pr eviou s Pap: Type of Neopl hank (if appli cable ): Other Histo ry: Hormo eric (if appli cable ): PAP EDUCA JORGE L NOTE: The Pap Test is a scree lucinda test with an inher ent false negat john rate. Liqui d-bas e sampl ing may decre ase, but will not elimi majo, false negat john resul ts. A negat john resul t does not precl ude the prese nce and/o r devel opmen t of disea se, since the prese nce of abnor mal cells in the sampl e depen ds on the locat ion of the lesio n and sampl ing techn ique. Josué nued regul ar scree lucinda is the best metho d of cance r preve ntion . If repor blake cytol ogic findi ng do not corre late with physi tila and/o r histo rical findi ngs, furth er inves tigat ion is recom parvin d, as clini madiha parks nted. Not Available [facility] (Lab) [address], [place], [address], 06/09/2020 13:21:51 01/24/20 22 01/23/2022 IMAGE GUIDE D PAP AND HPV REGAR DLESS image guided Pap, HPV regardless of Pap result SEE RESULT S BELOW CASE REPOR T: Cytol ogy Gynec ologi tila Repor t Case: [id number] Autho rosales g Provi edwin: Maryellen Núñez MD Colle cted: 01/23 1736 Order ing Locat ion: [place] [facility] [place] Recei shy: 01/24 0056 First Scree n: Jessica Ceja, CT Rescr een: Saima Peñaloza Speci men: Scree lucinda Pap - Image d, Cervi x STATE MENT OF ADEQU ACY: Unsat isfac tory for evalu ation . FINAL DIAGN OSIS: Unsat isfac tory for evalu ation . Acell ular smear . Elect bessy min anais d by Saima Peñaloza on 01/29 at 4:35 PM ----- ----- ----- ----- ----- ----- ----- ----- ----- ----- ----- ----- ----- ----- ----- ----- ----- ---- HPV RESUL TS: HPV mRNA E6/E7 : No HPV mRNA Detec blake NOTE: This high risk HPV mRNA assay detec ts fourt een high- risk HPV types (16, 18, 31, 33, 35, 39, 45, 51, 52, 56, 58, 59, 66, 68) witho ut diffe renti ation . COMME NT: Slide scree celia amanda phan due to rejec tion by the Thinp rep Imagi ng Syste m. CLINI TILA INFOR MATIO N: Menst rual Statu s: LMP (if appli cable ): Clini tila Histo ry/Pr eviou s Pap: Type of Neopl hank (if appli cable ): Signi fican t Clini tila Findi ngs: Other Histo ry: Hormo eric (if appli cable ): Not Available [facility] (Lab) [address], [place], [address], 01/29/2022 17:38:03 02/20/20 22 02/19/2022 IMAGE GUIDE D PAP AND HPV REGAR DLESS image guided Pap, HPV regardless of Pap result SEE RESULT S BELOW CASE REPOR T: Cytol ogy Gynec ologi tila Repor t Case: [id number] Autho rosales hoover Provi edwin: Maryellen Núñez MD Colle cted: 02/19 1328 Order ing Locat ion: [place] Path[facility] [place] Recei shy: 02/20 0850 First Scree n: Lalo Armendariz , CT Speci men: Scree lucinda Pap - Image d, Cervi x STATE MENT OF ADEQU ACY: Satis facto ry for evalu ation Trans forma tion zone compo nent prese nt FINAL DIAGN OSIS: Negat john for Intra epith elial Lesio n or Russell marques (NIL) . Elect bessy min anais d by Lalo Armendariz , RYLEE on 02/20 at 6:26 PM ----- ----- ----- ----- ----- ----- ----- ----- ----- ----- ----- ----- ----- ----- ----- ----- ----- ---- HPV RESUL TS: HPV mRNA E6/E7 : No HPV mRNA Detec blake NOTE: This high risk HPV mRNA assay detec ts fourt een high- risk HPV types (16, 18, 31, 33, 35, 39, 45, 51, 52, 56, 58, 59, 66, 68) witho ut diffe renti ation . COMME NT: Note: This speci men was revie wed by a Cytot echno logis t and/o r Patho logis t (as indic ated in this repor t) after evalu ation using the Thinp rep Imagi ng Syste m. CLINI TILA INFOR MATIO N: Menst rual Statu s: LMP (if appli cable ): Clini tila Histo ry/Pr eviou s Pap: Type of Neopl hank (if appli cable ): Signi fican t Clini tila Findi ngs: Other Histo ry: Hormo eric (if appli cable ): PAP EDUCA JORGE L NOTE: The Pap Test is a scree lucinda test with an inher ent false negat john rate. Liqui d-bas ed sampl ing may decre ase, but will not elimi majo, false negat john resul ts. A negat john resul t does not precl ude the prese nce and/o r devel opmen t of disea se, since the prese nce of abnor mal cells in the sampl e depen ds on the locat ion of the lesio n and sampl ing techn ique. Josué nued regul ar scree lucinda is the best metho d of cance r preve ntion . If repor blake cytol ogic findi ng do not corre late with physi tila and/o r histo rical findi ngs, furth er inves tigat ion is recom parvin keys, as clini madiha aguilared. Not Available [facility] (Lab) [address], [place], [address], 02/20/2022 22:23:23 Result Notes None recorded. Problems Name Problem SNOMED Code Status Onset Date Resolution Date Notes Provider Name and Address Organization Details Recorded Time Menopause present [id number] Active 2017 Symptoms such as flushing, sleeplessn ess, headache, lack of concentrat ion, associated with natural (age-relat ed) menopause; Recorded Elsewhere: No Locatio n: [facility] Melisa rce: EHR Chroni c: N Practice ID: [id number] Keagna ble Time: 01:30:00 PM Not Available [facility] 0 17:29:41 Problem Notes None recorded. Procedures Surgical History Date Name Laterality Status Provider Name and Address Organization Details Recorded Time 022 Date of Last Pap Smear completed Kya Parra [facility] 01/23/2022 18:19:58 022 IUD Removal completed Maryellen English MD [address], [place], [address], [facility] 10/13/2021 13:08:23 020 endoscopic insertion of stent into pancreatic duct completed Kya Parra [facility] 07/25/2022 19:51:26 020 endoscopic insertion of stent into pancreatic duct completed Kyabonita Parra [facility] 07/25/2022 19:51:29 020 endoscopic insertion of stent into pancreatic duct completed Kyabonita Parra [facility] 07/25/2022 19:51:33 020 endoscopic insertion of stent into pancreatic duct completed Kyabonita Parra [facility] 07/25/2022 19:50:33 014 esophagogastrostomy completed [facility] 07/25/2022 19:53:35 014 total knee replacement completed [facility] 07/25/2022 19:54:00 014 colonoscopy completed [facility] 05/20/2020 16:05:12 014 endoscopy completed [facility] 07/25/2022 19:50:10 011 cholecystectomy completed [facility] 05/20/2020 16:07:15 991 ligation of bilateral fallopian tubes completed [facility] 07/25/2022 19:50:18 Imaging Results None recorded. Procedure Notes None recorded. Medical Equipment None Reported. Allergies No known drug allergies Medications Name Sig Start Date Stop Date Status Note LastModified by Organization Details LastModified Time amoxicill in 500 mg capsule TAKE 1 CAPSULE THREE TIMES DAILY active Not Available Not Available No t Available Mirena 21 mcg/24 hr (up to 8 years) 52 mg intrauter ine device Take by intraute rine route. 10/13 completed Not Available Not Available Not Available dicloxaci llin 500 mg capsule take 1 capsule (500MG) by oral route every 6 hours 1 hour before a meal or 2 hours after a meal 05/12 completed Prescrib ed Elsewher e: No Locat ion: Wilma [facility] odify By: phuc live DateTime : 11/07/19 13 10:45:00 AM Not Available Not Available Not Available prednison e 20 mg tablet TAKE 2 TABLETS BY MOUTH DAILY FOR 5 DAYS active Not Available Not Available No t Available metoprolo l succinate ER 100 mg tablet,ex tended release 24 hr active Not Available Not Available Not Available hydroxyzi ne pamoate 50 mg capsule TAKE 1 CAPSULE BY MOUTH THREE TIMES DAILY FOR 10 DAYS NEEDED FOR ITCHING active Not Available Not Available No t Available ciproflox acin 250 mg tablet TAKE 1 TABLET BY MOUTH EVERY 12 HOURS 10/13 completed Not Available Not Available Not Available Metrogel Vaginal 0.75 % (37.5 mg/5 gram) insert 1 applicat orful by vaginal route every day at bedtime 02/08 completed Prescrib ed Elsewher e: No Locat ion: [facility] odify By: vinita castillo DateTime : 01/22/20 14 11:30:00 AM Not Available Not Available Not Available omeprazol e 10 mg capsule,d elayed release take 2 capsule by oral route every day before a meal active Prescrib ed Elsewher e: Yes Loca tion: [facility] odify By: phuc live DateTime : 05/13/19 15 03:45:00 PM Not Available Not Available Not Available dicyclomi ne 20 mg tablet TAKE 1 TABLET BY MOUTH THREE TIMES DAILY NEEDED FOR CRAMPS active Not Available Not Available No t Available Flagyl 500 mg tablet take 1 tablet (500MG) by oral route 2 times every day 01/21 completed Prescrib ed Elsewher e: No [facility] By: vinita castillo DateTime : 11/07/19 13 10:45:00 AM Not Available Not Available Not Available pantopraz ole 40 mg tablet,de layed release active Not Available Not Available Not Available nortripty line 10 mg capsule take 2 capsule by oral route 4 times every day 06/07 completed Prescrib ed Elsewher e: Yes [facility] odify By: phuc paulsonuntrodolfo DateTime : 08/21/19 13 08:26:29 AM Not Available Not Available Not Available cephalexi n 500 mg tablet take 1 tablet (500MG) by oral route every 6 hours 01/21 completed Prescrib ed Elsewher e: No Locat ion: [facility] odify By: vinita castillo DateTime : 10/31/19 13 02:15:00 PM Not Available Not Available Not Available Paxil 10 mg tablet take 1 tablet by oral route every day 06/07 completed Prescrib ed Elsewher e: No Locat ion: Wilma lou [facility] odify By: flora Mack nter DateTime : 11/08/19 18 01:30:00 PM Not Available Not Available Not Available ondansetr on 4 mg disintegr ating tablet DISSOLVE 1 TABLET ON THE TONGUE EVERY 8 HOURS NEEDED FOR NAUSEA OR VOMITING active Not Available Not Available No t Available Ambien 5 mg tablet take 2 tablet by oral route every day at bedtime 10/30 completed Prescrib ed Elsewher e: Yes Loca tion: [facility] odify By: phuc paulsonuntrodolfo DateTime : 11/23/19 11 09:00:00 AM Not Available Not Available Not Available dicyclomi ne 10 mg capsule take 1 capsule by oral route 3 times every day active Prescrib ed Elsewher e: Yes Loca tion: [facility]ma [facility] odify By: phuc paulsonuntrodolfo DateTime : 05/13/19 15 03:45:00 PM Not Available Not Available Not Available Estrace 0.01% (0.1 mg/gram) vaginal cream insert (1G) by vaginal route every other night for a month then once weekly 06/07 completed Prescrib ed Elsewher e: No Locat ion: Wilma lou [facility] odify By: flora Mack nter DateTime : 11/08/19 18 01:30:00 PM Not Available Not Available Not Available Creon 12,000-38 ,000-60,0 00 unit capsule,d elayed release take 2 capsule by oral route 3 times every day with meals and 1 capsule with each snack 05/12 completed Prescrib ed Elsewher e: Yes Loca tion: [facility] odify By: phuc paulsonuntrodolfo DateTime : 08/21/19 13 11:30:00 AM Not Available Not Available Not Available Zenpep 10,000 unit-34,0 00 unit-55,0 00 unit capsule,d elayed release take 2 capsule by oral route 3 times every day with meals and 2 capsules with each snack active Prescrib ed Elsewher e: Yes Loca [facility]ion: [facility] odify By: phuc Kev loreneunter DateTime : 05/13/19 03:45:00 PM Not Available Not Available Not Available Minastrin 24 Fe 1 mg-20 mcg (24)/75 mg (4) chewable tablet chew 1 tablet by oral route every day 11/16 completed Prescrib ed Timothy e: No Locat ion: [facility] odify By: shelby paulsonunter DateTime : 06/09/19 10:00:00 AM Not Available Not Available Not Available Zenpep 25,000 unit-79,0 00 unit-105, 000 unit capsule,d elayed release active Not Available Not Available Not Available Vitals Date Recorded Body height Body mass index (BMI) Body weight Systolic And Diastolic Provider Name and Address Organization Details Last Updated DateTime 06/07/2020 160.02 cm 29.8 kg/m2 20860.52 g 133/75 mm[Hg] [facility] 06/07/2020 14:45:02 Date Recorded Body weight Systolic And Diastolic Provider Name and Address Organization Details Last Updated DateTime 10/13/2021 69955.74 g 133/74 mm[Hg] [facility] 10/13/2021 12:57:42 Date Recorded Body height Body mass index (BMI) Body weight Systolic And Diastolic Provider Name and Address Organization Details Last Updated DateTime 01/23/2022 160.02 cm 29.6 kg/m2 32526.93 g 138/77 mm[Hg] Kya Prara [facility] 01/23/2022 12:33:02 Date Recorded Body height Body mass index (BMI) Body weight Systolic And Diastolic Provider Name and Address Organization Details Last Updated DateTime 02/19/2022 160.02 cm 29.1 kg/m2 71106.15 g 141/78 mm[Hg] [facility] 02/19/2022 11:48:32 Social History Question Answer Notes LastModified by Organizat ion Details LastModified Time Tobacco Smoking Status Current Every Day Smoker Kya Parra [facility], [facility] 01/23/2022 12:34:01 Do You Have An Advance Directive? No [email or web address] Information n ot available 01/23/2022 Are You Blind Or Do You Have Difficulty Seeing? Yes [email or web address] Information n ot available 01/23/2022 What Is Your Level Of Caffeine Consumption? Moderate Information not available 01/23/2022 In The 14 Days Before Symptom Onset, Have You Had Close Contact With A Laboratory-confirm ed COVID-19 While That Case Was Ill? No Information n ot available 01/23/2022 In The 14 Days Before Symptom Onset, Have You Had Close Contact With A Person Who Is Under Investigation For COVID-19 While That Person Was Ill? No [email or web address] Information not available 01/23/2022 Have You Been To An Area Known To Be High Risk For COVID-19? No [email or web address] Information not available 01/23/2022 Are You Deaf Or Do You Have Serious Difficulty Hearing? No [email or web address] Information not available 01/23/2022 What Type Of Diet Are You Following? SPECIFIC [email or web address] Information n ot available 01/23/2022 What Is The Highest Grade Or Level Of School You Have Completed Or The Highest Degree You Have Received? [id number] [email or web address] Information not available 01/23/2022 Do You Use Protection During Sex? No [email or web address] Information not available 01/23/2022 Do You Use Your Seat Belt Or Car Seat Routinely? Yes Information not available 01/23/2022 Do You Have Smoke And Carbon Monoxide Detectors In Your Home? Yes [email or web address] Information not available 01/23/2022 At What Age Did You Start Smoking Tobacco? 16 [email or web address] Information not available 01/23/2022 How Much Tobacco Do You Smoke? 1 PPD [email or web address] Information not available 01/23/2022 Do You Use Sunscreen Routinely? Yes Information not available 01/23/2022 Have You Used IV Drugs? No [email or web address] Information not available 01/23/2022 Sex: Unknown Functional Status Question Answer Note LastModified by Organizat ion Details LastModified Time Do you use any illicit or recreational drugs? No Information not available 06/07/2020 Do you or have you ever used any other forms of tobacco or nicotine? No [email or web address] Information not available 01/23/2022 What is your level of alcohol consumption? 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 Occasional [email or web address] Information not available 01/23/2022 Mental Status Question Answer Note LastModified by Organization D etails LastModified Time Do you feel stressed (tense, restless, nervous, or anxious, or unable to sleep at night)? [id number] [email or web address] Information not available 01/23/2022 Family History Relationship Description Onset Age of this Age Resolved Age Notes LastModified by Organization Details LastModified Time Maternal Grandfather Heart disease [email or web address] Not available 07/25 19:49:40 Notes:Maternal grandfather: Congenital heart disease Medical History Condition Response Allergies (Food, seasonal, environmental ) N Other N Breast Cancer N Drug/Latex Allergies/Reactions N Blood Transfusion N Dermatologic Disorders N Lung Disease N Defects or Inherited Disease N Breast Problem Y Gestational Diabetes N Hematologic disorders N Anesthesia Complications N History of STI N Deep Vein Thrombosis N Polycystic ovary syndrome N Anxiety Disorder N Autoimmune disease N Arthritis Y Infertility N Polyps N Acid Reflux (GERD) Y History of abnormal pap N Cancer N Stroke N Varicosities N Neurologic/Epilepsy N Endometriosis N High Cholesterol N Headaches N Fibromyalgia N Kidney Disease N Heart Problems N Kidney or Bladder Problems N Thyroid Problems N GI Problems Y Eating Disorder N Anemia N Art (IVF or FET) N Psychiatric Illness N Ovarian Cancer N Diabetes N Pulmonary (TB, Asthma) N Hepatitis/Liver Disease N No Past Medical History N Eczema N Urinary Tract Infection N Abuse/Domestic Violence N Asthma N Trauma/Violence N Depression/ depression N Heart Disease N Pre-Eclampsia N Hypertension N Osteoporosis N Thrombophilias N Gynecological History Statement/Question Response Date of Last Pap Smear 01/23/2022 Current Control Method Tubal Ligat ion Date of Last Mammogram Date of LMP 03/04/2011 Obstetrics History GPAL:G 2 P 2 0 0 2 Type Value Full Term 2 Living 2 Total 2 Past Encounters Encounter ID Performer Location Encounter Start Date Encounter Closed Date Diagnosis/Indication Diagnosis SNOMED-CT Code Diagnosis ICD10 Code Diagnosis IMO Codes Diagnosis Note [id number] Maryellen English MD [place] [address],[place] [address] 06/07/2020 14:38:12 06/07/2020 22:37:54 Gynecologic examination 99070543 Z01.419 [id number] Maryellen English MD [place] [address],[place] [address] 10/13/2021 12:22:41 10/13/2021 13:09:50 Removal of intrauterine device 51235563 Z30.432 [id number] Maryellen English MD [place] [address],[place] [address] 01/23/2022 12:06:24 01/23/2022 14:15:55 Gynecologic examination 47461171 Z01.419 Menopause present 120757 006 N95.1 [id number] Maryellen English MD [place] [address],[place] [address] 02/19/2022 11:36:19 02/19/2022 12:12:47 Cervicovaginal cytology specimen unsatisfactory 444924714 R87.615 Health Concerns Section Related Observation LastModified by Organization Detai ls LastModified Time None Recorded Concern Status LastModified by Organization Details LastModified Time None Recorded Advance Directives Directive N: Payers Insurance Date Sequence Insurance Name Policy Number Policy Reyes Covered Member ID Reyes Member ID Guarantor Name 02/16/[address] [facility] [id number] Nic Ochoa [id number] Gladis Ochoa Notes Date Note Type Note Provider Name and Address Organization Details Recorded Time 06/07/2020 text/html Patient is a55yo who presents for an annual exam. Has second mirena in for menorrhagia since 10/2014. last pap-2014 mammo-5 years colonoscopy-2020- q 3 years for polyps dexa-none menopause-uncertai n sexually active-yes seatbelts-yes exercise-yes depression-denies domestic violence-denies tobacco-yes 1ppd concerns-none Maryellen English MD [address], [place], [address], [facility] 06/13/2020 09:39:30 10/13/2021 text/html here for iud removal.WWE overduemirea placed 10/2014, no bleeding since Maryellen English MD [address], [place], [address], [facility] 10/13/2021 13:09:28 01/23/2022 text/html Patient is a 56yo who presents for an annual exam. Never did her mammo last year. No complaints. Had IUD out in Oct, doing well without it, no bleeding. last pap-06/2020 mammo-6 years colonoscopy-2019, 3 years polyps dexa-none menopause-y sexually active-y seatbelts-y exercise-y depression-denies domestic violence-denies tobacco-n concerns- Maryellen English MD [address], [place], [address], [facility] 01/23/2022 13:41:32 02/19/2022 text/html repap insufficient cells Maryellen English MD [address], [place], [address], [facility] 02/19/2022 12:03:38 OBGyn Episode Ob Episode Information Episode Created Date Number of Fetuses Patient Bloodtype Patient rh Status Prepregnancy Weight lbs Domestic Partner Domestic Partner Phone Father Name [place] Status 06/08/19 21 1 CLOSED Fetus Data First Name Last Name Admitted to NICU Weight (g) Sex Living Outcome Pediatric Complications Fetus ID Race Codes Race Delivery Type 3713.55 7704 M Full Term [id number] Vaginal Delivery Hernesto Calculation Initial Hernesto Date Initial Exam Date Initial Exam Provider Initial Ultrasound Date Last Menstrual Period Date Ultra Sound Weeks Gestation 0 Eighteen To Twenty Week Hernesto Update Ultra Sound Date Fundal Height At Umbil Quickening Date Ultra Sound Latest Weeks Gestation Final Hernesto Confirmed By Final Hernesto Confirmed Date Final Hernesto Date Ultra Sound Latest Days Gestation 0 0 Menstrual History Last Menstrual Date Menses Monthly On Bcp Conception Prior Menses Frequency Hcg Plus Date Menarche Onset Age Delivery Information Delivery Date Delivery Type Labor Anesthesia Weeks Gestation Incision Type Labor Labor Length Hrs Delivered By Post Complications Tubal Sterilization Discharge Date Comments 9 Discharge Information Feeding Method Contraceptive Method Maternal HG B and HCT Levels Ob Episode Information Episode Created Date Number of Fetuses Patient Bloodtype Patient rh Status Prepregnancy Weight lbs Domestic Partner Domestic Partner Phone Father Name County Auditor Status 05/21/19 21 1 DELETED Hern[place] Calculation Initial [place] Date Initial Exam Date Initial Exam Provider Initial Ultrasound Date Last Menstrual Period Date Ultra Sound Weeks Gestation 0 Eighteen To Twenty Week Hernesto Update Ultra Sound Date Fundal Height At Umbil Quickening Date Ultra Sound Latest Weeks Gestation Final [place] Confirmed By Final Hernesto Confirmed Date Final Hern[place] Date Ultra Sound Latest Days Gestation 0 0 Menstrual History Last Menstrual Date Menses Monthly On Bcp Conception Prior Menses Frequency Hcg Plus Date Menarche Onset Age Delivery Information Delivery Date Delivery Type Labor Anesthesia Weeks Gestation Incision Type Labor Labor Length Hrs Delivered By Post Complications Tubal Sterilization Discharge Date Comments 9 Discharge Information Feeding Method Contraceptive Method Maternal HG B and HCT Levels Ob Episode Information Episode Created Date Number of Fetuses Patient Bloodtype Patient rh Status Prepregnancy Weight lbs Domestic Partner Domestic Partner Phone Father Name County Aud[place] Status 05/21/19 21 1 DELETED Hern[place] Calculation Initial [place] Date Initial Exam Date Initial Exam Provider Initial Ultrasound Date Last Menstrual Period Date Ultra Sound Weeks Gestation 0 Eighteen To Twenty Week Hernesto Update Ultra Sound Date Fundal Height At Umbil Quickening Date Ultra Sound Latest Weeks Gestation Final Henresto Confirmed By Final Hernesto Confirmed Date Final Hern[place] Date Ultra Sound Latest Days Gestation 0 0 Menstrual History Last Menstrual Date Menses Monthly On Bcp Conception Prior Menses Frequency Hcg Plus Date Menarche Onset Age Delivery Information Delivery Date Delivery Type Labor Anesthesia Weeks Gestation Incision Type Labor Labor Length Hrs Delivered By Post Complications Tubal Sterilization Discharge Date Comments 5 Discharge Information Feeding Method Contraceptive Method Maternal HG B and HCT Levels Ob Episode Information Episode Created Date Number of Fetuses Patient Bloodtype Patient rh Status Prepregnancy Weight lbs Domestic Partner Domestic Partner Phone Father Name County Auditor Status 06/08/19 21 1 CLOSED Fetus Data First Name Last Name Admitted to NICU Weight (g) Sex Living Outcome Pediatric Complications Fetus ID Race Codes Race Delivery Type 3288.54 2 M Full Term [id number] Vaginal Delivery Hernesto Calculation Initial Hernesto Date Initial Exam Date Initial Exam Provider Initial Ultrasound Date Last Menstrual Period Date Ultra Sound Weeks Gestation 0 Eighteen To Twenty Week Hernesto Update Ultra Sound Date Fundal Height At Umbil Quickening Date Ultra Sound Latest Weeks Gestation Final Hernesto Confirmed By Final Hernesto Confirmed Date Final Hernesto Date Ultra Sound Latest Days Gestation 0 0 Menstrual History Last Menstrual Date Menses Monthly On Bcp Conception Prior Menses Frequency Hcg Plus Date Menarche Onset Age Delivery Information Delivery Date Delivery Type Labor Anesthesia Weeks Gestation Incision Type Labor Labor Length Hrs Delivered By Post Complications Tubal Sterilization Discharge Date Comments 5 Discharge Information Feeding Method Contraceptive Method Maternal HG B and HCT Levels
--- OUTSIDE RECORDS SUMMARY | 2024-12-25 14:48 | XMS_ITS | Clinical Summary ---
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 Gender Identity Not on file Sexual Orientation Not on file Obstetrics History Last Filed Vital Signs Vital Sign Reading Time Taken Comments Blood Pressure 118/70 05/08/2023 8:21 AM CIVIL SERVICE WORKER Pulse 72 05/08/2023 8:21 AM CIVIL SERVICE WORKER Temperature 36.8 C (98.2 F) 10/14/2019 11:35 AM CDT Respiratory Rate 20 10/14/2019 11:35 AM CDT Oxygen Saturation 98% 05/08/2023 8:21 AM CIVIL SERVICE WORKER Inhaled Oxygen Concentration - - Weight 69.9 kg (154 lb) 05/08/2023 8:21 AM CIVIL SERVICE WORKER Height 162.6 cm (5' 4) 05/08/2023 8:21 AM CIVIL SERVICE WORKER Body Mass Index 26.43 05/08/2023 8:21 AM CIVIL SERVICE WORKER Plan of Treatment Health Maintenance Due Date [...] this topic Medical Devices Explanted Type Area Asset Protection Greeter Device Identifier Shelf Expiration Date Model / Serial / Lot [employer] 6555 [place] Flexi-Stent 5fr 9cm Small Pigtail Flexible .035in Stent - [id number] Implanted:Qty : 1 on 10/12/2019 by Yaya Pardo MD at [facility] Explanted:Qty : 1 on 10/14/2019 by Yaya Pardo MD at [facility] Stent N/A: Pancreas [employer] 04/03/2024 [id number] / / [id number] [employer] [facility] [id number] Edgar Viabil 10mm 8.5fr 6cm 200cm Fully Covered Self Expand Pull - [id number] - [id number] Implanted:Qty : 1 on 10/12/2019 by Yaya Pardo MD at [facility] Explanted:Qty : 1 on 10/14/2019 by Yaya Pardo MD at [facility] Stent N/A: Bile Duct [employer] 06/15/2022 [id number] / [id number] / Procedures Procedure Name Priority Date/Time Associated Diagnosis Comments COLONOSCOPY 10/01/2019 9:46 AM CDT from Last 3 Months or Most Recently Relevant to Health Maintenance Results * COLONOSCOPY (10/01/2019 9:46 AM CDT) Anatomical Region Laterality Modality Other Narrative Procedure Note Yaya Pardo MD - 10/01/2019 9:46 AM CDT ENDOSCOPY LAB Patient Name: Gladis Ochoa Procedure Date: 10/01/2019 9:46 AM Admit Type: Outpatient Room: [facility] Date of : 1965 Instrument Name: [id number] [...] the bowelpreparation was evaluated using the BBPS (Blackstone Bowel Preparation Scale) with scores of: Right [...] Advance Directives For more information, please contact: [phone] * Full Code (Latest Code Status on File) Date Activated Date Inactivated Comments 10/13/2019 9:24 AM 10/14/2019 6:47 PM Care Teams Software Applications Engineer Relationship Specialty Start Date End Date Latosha Lucero MD [address] [place] [address] PCP - General Family Medicine 12/28/20 Yaya Pardo MD [address] [place] [address] Consulting Physician Gastroenterology 10/14/19
--- OUTSIDE RECORDS SUMMARY | 2024-12-25 14:48 | XMS_ITS | Data Portability ---
Author Organization [place] [employer] [place] [employer] [facility], Main Office Address [address] [place] [address] Care Team Providers Care Hotel Or Motel Room Service Supervisor Name Role Phone JESUS OLIVEIRA Primary Care Provider [phone] JESUS OLIVEIRA Referring Provider Assessment Encounter Date Assessment Date Assessment LastModified by Organization Details LastModified Time 06/28/2022 06/28/2022 Patient presents hip and back pain left. She has an arthritic back and has had pain in the left hip and sacroiliac region now for several months about 6 worse with active activity somewhat relieved by rest. She continues to be fairly symptomatic wonders what else can done. On exam she is tender over the sacroiliac region has a positive CRISTIAN test pain to palpation manipulation neurologically she is grossly intact strength is good. I think predominant problem sacroiliac bursitis I recommend injection with 20 mg Kenalog 4 cc 1% lidocaine the sacroiliac bursa will also try a prednisone taper for prescription drug management for pain and inflammation. We will begin some therapy and will see her back in a month follow-up to see how she is progressing. [email or web address] Not available 06/28/2022 11:48:14 08/16/2022 08/16/2022 Patient returns back and sacroiliac pain. She is tender to palpation has pain to manipulation. She got temporary relief the injection would like to try another 1 today. The prednisone also helped although she can not be on that for ever. For present for prescription drug management will try Voltaren for pain and inflammation. She should continue with exercise will begin and therapy. I will see her back in a month for follow-up discussed. [email or web address] Not available 08/16/2022 10:48:14 Plan of Treatment Reminders Order Date Submit Date Provider Last Modified By Organization Details Last Modified Time Details Appointments None recorded. Lab None recorded. Referral physical therapist referral - patient to schedule 2022 023 [email or web address] [facility], [address], [place], [address], 14:19:16 Procedures injection/a spiration joint/bursa (PROC) - in office procedure, administere d by provider 2022 023 [email or web address] In-Office Order, Internal Use Only DO Not Attach Compendium DO Not Attach Compendium, Do Not Delete/merge, [id number] 11:49:03 Surgeries None recorded. Imaging None recorded. Medication Orders diclofenac sodium 75 mg tablet,prakash yed release 2022 023 [facility] #[id number], [address] [place] [address], [id number], 10:29:43 Kenalog 10 mg/mL suspension for injection 2022 023 [facility] #21915, [address] [place] [address], [id number], 3 11:49:26 ropivacaine (PF) 5 mg/mL (0.5 %) injection solution 2022 023 [place] [address] [facility], [address] [place] [address], [id number], 3 11:49:26 prednisone 10 mg tablets in a dose pack 2022 023 [facility] #61998, [address] [place] [address], [id number], 12:09:23 Patient TargetsNo targets recorded. Patient InstructionsNo instructions recorded. Reason for Referral Physical Therapist Referral for Pain in left sacroiliac joint patient to schedule Referring Physician: Luan Wright, Orthopedic Surgery, Encounter Date: 06/28/2022 Results Created Date Observation Date Name Description Value Unit Range Abnormal Flag Note LastModifiedBy Organization Detail LastModifiedTime 06/29/19 23 06/25/2022 XR, hip + pelvi s, unila teral No observ ation record ed. [email or web address] Not Available 2022 15:44:15 Result Notes None recorded. Problems Name Problem SNOMED Code Status Onset Date Resolution Date Notes Provider Name and Address Organization Details Recorded Time Radiothera py follow-up 942006943 Active Not Available [facility] 3 12:46:20 Osteoarthr itis 089291778 Active Not Available [facility] 3 12:46:20 Low back pain 617532046 Active 2022 OSWALD Khan, [facility] 3 11:32:28 Pain in left sacroiliac joint 8131647339063 9102 Active 2022 Luan Wright MD [address], [place] [address], [place], [address] , [email or web address] [facility] 3 11:48:24 Spinal stenosis of lumbar region 18130117 Active 2022 Radha jones [facility]ASSS[facility] [employer] [facility] 3 11:48:50 Problem Notes None recorded. Procedures Surgical History Date Name Laterality Status Provider Name and Address Organization Details Recorded Time 3 Ortho - Cortisone Injection completed Luan Wright MD [address], [place] [address], [place], [address], [employer] [facility] 06/28/2022 11:46:54 Knee Replacement completed OSWALD Khan [place] [facility] [employer] [facility] 06/28/2022 11:31:19 Gallbladder Surgery completed OSWALD Khan [place] [facility] [employer] [facility] 06/28/2022 11:31:28 Imaging Results None recorded. Procedure Notes None recorded. Medical Equipment None Reported. Medications Name Sig Start Date Stop Date Status Note LastModified by Organization Details LastModified Time celecoxib 200 mg capsule 09/22 completed Not Available Not Available Not Available prednisone 10 mg tablet active Not Available Not Available Not Available metoprolol succinate ER 50 mg tablet,exte nded release 24 hr 09/22 completed Not Available Not Available Not Available meloxicam 15 mg tablet TAKE 1 TABLET BY MOUTH DAILY active Not Available Not Available No t Available prednisone 20 mg tablet TAKE 2 TABLETS BY MOUTH DAILY FOR 5 DAYS 06/28 completed Not Available Not Available Not Available metoprolol succinate ER 100 mg tablet,exte nded release 24 hr TK 1 T PO QD active Not Available Not Available No t Available hydroxyzine pamoate 50 mg capsule TAKE 1 CAPSULE BY MOUTH THREE TIMES DAILY FOR 10 DAYS NEEDED FOR ITCHING 06/28 completed Not Available Not Available Not Available valacyclovi r 500 mg tablet TAKE 4 TABLETS BY MOUTH AT ONSET OF ATTACK AND 12 HOURS LATER active Not Available Not Available No t Available prednisone 10 mg tablets in a dose pack Take 1 tab by mouth, 3 times a day for 3 daysTake 1 tab by mouth 2 times a day for 2 daysTake 1 tab by mouth once a day for 1 day 2022 active Not Available Not Available Not Avai lable oxycodone-a cetaminophe n 5 mg-325 mg tablet 09/22 completed Not Available Not Available Not Available metoclopram martha 5 mg tablet 09/22 completed Not Available Not Available Not Available methocarbam ol 750 mg tablet 09/22 completed Not Available Not Available Not Available DOK 100 mg capsule TK 1 C PO BID 09/22 completed Not Available Not Available Not Available aspirin 325 mg tablet,prakash yed release 09/22 completed Not Available Not Available Not Available Kenalog 10 mg/mL suspension for injection Take 20 mg by injection route. 2022 active [facility]: 0003- 0494- 20 Not Available Not Available Not Available nortriptyli ne 75 mg capsule 09/22 completed Not Available Not Available Not Available hydrocodone 7.5 mg-acetamin ophen 325 mg tablet 09/22 completed Not Available Not Available Not Available pantoprazol e 40 mg tablet,prakash yed release TK 1 T PO QD active Not Available Not Available No t Available omeprazole 20 mg capsule,del ayed release 09/22 completed Not Available Not Available Not Available diclofenac sodium 75 mg tablet,prakash yed release TAKE 1 TABLET BY MOUTH TWICE DAILY active Not Available Not Available No t Available ondansetron 4 mg disintegrat ing tablet active Not Available Not Available N ot Available dicyclomine 10 mg capsule TK ONE C PO TID PRF SPASMS active Not Available Not Available No t Available neomycin 3.5 mg/g-polymy ronak B 10,000 unit/g-dexa meth 0.1 % eye oint APPLY TO LIDS TWICE DAILY FOR 7 DAYS DIRECTED active Not Available Not Available No t Available enoxaparin 30 mg/0.3 mL subcutaneou s syringe 09/22 completed Not Available Not Available Not Available ropivacaine (PF) 5 mg/mL (0.5 %) injection solution Take 20 mg by injection route. 2022 active [facility] 01503 -064- 01 Not Available Not Available Not Available Zenpep 25,000 unit-85,000 unit-136,00 0 unit capsule,del ayed release 09/22 completed Not Available Not Available Not Available Zenpep 25,000 unit-79,000 unit-105,00 0 unit capsule,del ayed release active Not Available Not Available Not Available Vitals Date Recorded Body height Body mass index (BMI) Body weight Provider Name and Address Organization Details Last Updated DateTime 06/28/2022 162.56 cm 28.8 kg/m2 22922.52 g OSWALD Khan [facility] 06/28/2022 11:27:21 Date Recorded Body height Body mass index (BMI) Body weight Provider Name and Address Organization Details Last Updated DateTime 08/16/2022 162.56 cm 27.5 kg/m2 17351.78 g Alejandra Frias CNA [facility] 08/16/2022 09:55:44 Social History Question Answer Notes LastModified by Organizat ion Details LastModified Time Tobacco Smoking Status Current Every Day Smoker OSWALD Khan [facility] 06/28/2022 11:31:07 How Much Tobacco Do You Smoke? 2 PPD [email or web address] Information not available 06/28/2022 Sex: Unknown Functional Status None recorded. Mental Status None recorded. Family History Relationship Description Onset Age of this Age Resolved Age Notes LastModified by Organization Details LastModified Time Father Family history of malignant neoplasm [email or web address] Not available 06/03 11:30:22 Mother Hypertensive disorder [email or web address] Not available 06/03 11:30:39 Medical History Condition Response ARTHRITIS Y HEART DISEASE/HEART PROBLEMS Y Gynecological HistoryNo gynecological history recorded. Obstetrics History GPAL:G 0 P 0 0 0 0 Past Encounters Encounter ID Performer Location Encounter Start Date Encounter Closed Date Diagnosis/Indication Diagnosis SNOMED-CT Code Diagnosis ICD10 Code Diagnosis IMO Codes Diagnosis Note [id number] Luan Wright MD [facility] [address] [place] [address] 06/28/2022 11:09:08 06/28/2022 14:19:15 Low back pain 982386092 M54.50 Pain in le ft sacroiliac joint 9004350240 2383443 M53.3 Spinal diogo nosis of lumbar region 22559591 M48.061 [id number] Luan Wright MD [facility] [address] [place] [address] 08/16/2022 09:47:26 08/16/2022 11:14:30 Low back pain 924034370 M54.50 Pain in le ft sacroiliac joint 0573067188 4740053 M53.3 Spinal diogo nosis of lumbar region 93006769 M48.061 Health Concerns Section Related Observation LastModified by Organization Detai ls LastModified Time None Recorded Concern Status LastModified by Organization Details LastModified Time None Recorded Advance Directives Directive None Recorded Payers Insurance Date Sequence Insurance Name Policy Number Policy Reyes Covered Member ID Reyes Member ID Guarantor Name 08/21/2022 1 [facility] [id number] Jesus Ochoa [id number] Gladis Ochoa 07/23/2022 2 [id number]) [id number] Gladis Ochoa [id number] Gladis Ochoa Notes Date Note Type Note Provider Name and Address Organization Details Recorded Time 06/28/2022 text/html Back PainReporte d by PatientHPIFor location, patient reportspain radiating to the buttocks. For quality, patient reportsdull. For severity, patient reportsworsening. For duration, patient reportschronic. For context, patient reportsunusual activityandprior back problems. For associated symptoms, patient reportsno fever,no weak limbs,no numbness of the legs/feet,no tingling,no incontinence, andno shortness of breath. Luan Wright MD [address] [facility], [place], [address], [employer] [facility] 06/28/2022 12:09:38 08/16/2022 text/html Patient returns back and sacroiliac pain. Pain localized to low back and right sacroiliac pain bursa radiating down the left leg. It is worse with activity somewhat relieved by rest she got some relief from the injection however adjusted last. She remains symptomatic. Luan Wright MD [address], [place], [address], [employer] [facility] 08/16/2022 10:48:24 OBGyn Episode No OBEpisode recorded.
[2024-12-25] MEDS: IBUPROFEN 400 MG TABLET 800 MG PO (15:00)
--- NOTE | 2024-12-25 15:20 | ED.LOWEXIN ---
HPI - Extremity Injury (Lower) General Chief Complaint: Extremity Injury, Lower Stated Complaint: foot pain/injury Time Seen by Provider: 12/25/24 13:56 Source: patient and RN notes reviewed Mode of arrival: ambulatory Limitations: no limitations History of Present Illness HPI Narrative: 59-year-old female Presents [facility] complaining of injury to left ankle/foot, and left knee. Patient reports earlier today she was walking up the ramp to go inside her house when she actually tripped and fell ruling her left ankle injury in her left knee. Patient denies hitting her head, loss of consciousness, neck pain, back pain, or any other injuries. Patient reports pain with bearing weight to her left foot. Patient's has has not taken anything to help with the pain. Patient denies any numbness, tingling or any other symptoms. Patient says she has a history of chronic pancreatitis. Patient denies taking any blood thinners. Related Data Home Medications ?Medication ?Instructions ?Recorded ?Confirmed ?Last Taken ?Type aheczw-ycvwraio-ocvudyk (pork) 2 cap PO TID 08/25/19 10/14/24 Unknown History 25,000-79,000-105k unit capsule,del rel (Zenpep) cetirizine 10 mg capsule (Zyrtec) 10 mg PO DAILY PRN 07/25/23 10/14/24 Unknown History dicyclomine 10 mg capsule 10 mg PO BID 07/25/23 10/14/24 Unknown History pantoprazole 40 mg tablet,delayed 40 mg PO QAM 07/25/23 10/14/24 Unknown History release Allergies Allergy/AdvReac Type Severity Reaction Status Date / Time tobramycin Allergy Unknown Rash Verified 12/25/24 13:24 oxycodone AdvReac Severe pancreatiti Verified 12/25/24 13:24 s lidocaine patch - [facility] Allergy Severe Rash Uncoded 10/14/24 09:47 brand Review of Systems Review of Systems: CONSTITUTIONAL: Denies fever, chills, or sweats. EYES: Denies visual changes, redness, or discharge. ENT: Denies rhinorrhea, congestion, sore throat, or otalgia. CARDIOVASCULAR: Denies chest pain, palpitations, or edema. RESPIRATORY: Denies cough or dyspnea. GASTROINTESTINAL: Denies abdominal pain, nausea, vomiting, or diarrhea. GENITOURINARY: Denies dysuria or hematuria. SKIN: Denies rash, wound, or itching. MUSCULOSKELETAL: Denies back pain, neck pain, joint pain, or myalgia. Positive for left foot/ankle injury and swelling. Positive for left knee pain. NEUROLOGIC: Denies headache, loss of consciousness, numbness, or weakness. PSYCHIATRIC: Denies anxiety or depression. All other systems reviewed are negative, except as documented in HPI. [facility] Past Medical History Medical History Mitral valve insufficiency Aortic regurgitation Sphincter of Oddi dysfunction Osteoarthritis GERD without esophagitis Degenerative disc disease, cervical Essential (primary) hypertension Pancreas divisum of [place] pancreas Chronic pancreatitis Surgical History Surgical History History of right knee surgery acl History of ERCP History of knee replacement (~2016) Left knee - 2017 Family History Family History Mother Hypertension Father Family history of lung cancer Sibling No problems noted. Social History Social History Smoking packs per day: 1 Smoking cigarettes per day: 20.0 Years smoked: 35 Smoking pack-years: 35.00 Smoking status: Current some day smoker (5-10 cigarettes on a bad day) Tobacco type: e-cigarettes/vaping Second hand tobacco smoke exposure: No Alcohol intake: never Substance use: never Substance use type: does not use Do You Feel Safe in your Home?: Yes Lack of Transportation: No Lack of Food: Never True Current Housing: I Have Housing Concerned About Future Housing: No Difficulty Paying Gas/Electric Bills: No Difficulty Paying for Meds: No Currently Unemployed: No Education: High School Diploma/GED Difficulty w/ Childcare or Family Care: No Living arrangements: with family Occupation/Education: occupation Additional occupation/education comments: office work Gender identity (if verbalized by the patient): Female Comments At the time of my signature, I reviewed and agree with the nursing past medical, surgical, social, and family history. There is no relevant family history pertinent to the patient complaint. Exam Narrative: GENERAL: This is a well-nourished, well-developed adult, in no apparent distress. They are non ill-appearing, nontoxic appearing. HEAD: normocephalic, atraumatic. EYES: Sclera clear/white. Vision is grossly intact. Conjunctiva normal. Extraocular movement intact. EARS: External ears normal Hearing grossly intact. NOSE: External nose normal THROAT: Mucous membranes moist NECK: Neck supple CARDIOVASCULAR: Regular rate and rhythm RESPIRATORY: Respiratory rate normal, respiratory effort nonlabored, no respiratory distress NEURO: awake, alert, and oriented to person, place and time. There were no obvious focal neurologic abnormalities. EXTREMITIES: Left ankle/foot: No obvious deformity, injury, or redness. Patient has lateral swelling bruising to the ankle proximal foot. There is pain to the 5th proximal metatarsal. There is pain through full range of motion. Capillary refill less than 3 seconds. Left pedal Pulse 2 +palpable. Normal sensation. Neurovascular status intact distal injury. Patient able to wiggle her toes. Negative Snowden's test. Left knee: Mild bruising to the anterior knee. No obvious deformity or redness. Mild swelling to the knee. No valgus or varus laxity. Capillary refill less than 2 seconds. Sensation intact. There is mild pain through full range of motion of the knee. Neurovascular status intact distally. BACK: Nontender without deformity. Course Course Emergency Course: Portions of this record may have been created with voice recognition software Vital Signs Vital signs: Vital Signs Temperature 97.8 F 12/25/24 13:19 Pulse Rate 76 12/25/24 13:19 Respiratory Rate 14 12/25/24 13:19 Blood Pressure 151/59 H 12/25/24 13:19 Pulse Oximetry 95 12/25/24 13:19 Oxygen Delivery Room Air 12/25/24 13:19 Temperature 97.8 F 12/25/24 13:19 Pulse Rate 76 12/25/24 13:19 Respiratory Rate 14 12/25/24 13:19 Blood Pressure 151/59 H 12/25/24 13:19 Pulse Oximetry 95 12/25/24 13:19 Oxygen Delivery Room Air 12/25/24 13:19 Reviewed Procedures Orthopedic Splinting/Casting Injury #1: Splinting/Casting Date: 12/25/24 Splinting/Casting Time: 15:15 Side: left Lower Extremity Injury Location: foot Splint: customized in ED OCL: short arm Pre-Procedure Neuro Vascular Exam: normal Post-Procedure Neuro Vascular Exam: normal Additional Comments: Patient tolerated procedure well. MDM - Extremity Injury (Lower) MDM Narrative Medical decision making narrative: There is a nondisplaced fracture at the base of the 5th metatarsal. Otherwise no other fractures identified to the left ankle, foot, left knee. However appears well intact to left knee. Discussed case with on-call ortho doctor Michelle who recommends posterior short-leg splint, partial weight-bearing in follow-up in his office. Offered crutches, patient says she has some at home, she says she also has a scooter at home to help with mobility. Will give patient short course of [place] for pain, she says she has tolerated this in the past before. Discussed physical exam findings. Advised supportive measures and signs/symptoms to go to the ER. Pt is appropriate for outpt treatment and f/u. Differential Diagnosis Differential diagnosis: Likely other (Foot fracture, foot sprain, ankle fracture, ankle sprain, knee fracture, knee sprain, knee contusion, ankle contusion) Imaging Data Radiologist's impression: ITS Impressions Knee X-Ray 12/25/24 14:48 Impression: No acute fracture or malalignment. Left ankle x-ray, left foot x-ray Left ankle: 1. No fracture or dislocation left ankle. 2. Visualized metatarsal fracture, see below. Left foot: 1. Nondisplaced FRACTURE fifth metatarsal base. 2. No other fracture identified left foot. Critical Care Time Critical Care Time Critical Care Time: No Discharge Plan Discharge Clinical Impression: Fracture of fifth metatarsal bone of left foot Qualifiers: Encounter type: initial encounter Fracture type: closed Fracture alignment: nondisplaced Qualified Code(s): S92.355A - Nondisplaced fracture of fifth metatarsal bone, left foot, initial encounter for closed fracture Contusion of left knee Qualifiers: Encounter type: initial encounter Qualified Code(s): S80.02XA - Contusion of left knee, initial encounter Fall Qualifiers: Encounter type: initial encounter Qualified Code(s): W19.XXXA - Unspecified fall, initial encounter Patient Disposition: Home Condition: Stable Instructions: Foot Fracture in Adults (ED) Additional Instructions: The x-ray of your left knee and left ankle is negative for any fractures or acute findings. Your left foot fracture does show a nondisplaced fracture to the base of the 5th metatarsal bone of your foot. Please wear the splint at all times, you may you do partial weight-bearing on the tips ear foot. Use crutches as needed a walker around or the scooter you have at home. Rest and elevate the leg; You may take ibuprofen 600 mg to 800 mg every 6-8 hours. Do not exceed more than 800 mg of ibuprofen per dose. Do not exceed more than 3200 mg ibuprofen in a day. You may take up to 1000 mg Tylenol every 6-8 hours. Do not exceed 1000 mg per dose, do exceed more than 4000 mg of Tylenol in a day. You may take [place] as needed for severe pain, please do not exceed the recommended amount of Tylenol as taking as [place] contains Tylenol. Do not drive or operate machinery while taking [place] as it may make you drowsy. Follow up with Ortho in 3-5 days. Return to ER for any severe pains, cold or blue extremity, numbness, tingling or any serious concerns. Patient Language: Sudanese Prescriptions: New hydrocodone-acetaminophen 5-325 mg tablet 1 tablet PO Q6H PRN (Reason: pain) Qty: 14 0RF No Action Zenpep 25,000-79,000- 105,000 unit capsule,delayed release(DR/EC) 2 cap PO TID Rx Instructions: administer with meals and/or snacks dicyclomine 10 mg capsule 10 mg PO BID pantoprazole 40 mg tablet,delayed release (DR/EC) 40 mg PO QAM Zyrtec 10 mg capsule 10 mg PO DAILY PRN ondansetron 4 mg tablet,disintegrating 4 mg PO Q8H PRN (Reason: nausea and vomiting) Qty: 12 0RF duloxetine [Cymbalta] 20 mg capsule,delayed release(DR/EC) 20 mg PO DAILY Qty: 90 2RF metoprolol succinate 100 mg tablet extended release 24 hr 100 mg PO DAILY Qty: 90 3RF rosuvastatin 5 mg tablet 5 mg PO DAILY Qty: 90 0RF Follow-up/Referrals: Latosha Lucero MD [Primary Care Provider, Family Practice] Rick Martinez MD [Physician, Orthopedics] - 3 Days Clinical Impression: Fracture of fifth metatarsal bone of left foot Time of Disposition: 15:28
== END 2024-12-25 15:38 | disposition home or self-care (01) ==
PROVIDERS: PCP Family Medicine
DX: S92.355A Nondisplaced fracture of fifth metatarsal bone, left foot, initial encounter for closed fracture (principal); S80.02XA Contusion of left knee, initial encounter; I08.0 Rheumatic disorders of both mitral and aortic valves; I10 Essential (primary) hypertension; K21.9 Gastro-esophageal reflux disease without esophagitis; K86.1 Other chronic pancreatitis; M19.90 Unspecified osteoarthritis, unspecified site; M50.30 Other cervical disc degeneration, unspecified cervical region; F17.210 Nicotine dependence, cigarettes, uncomplicated; F17.290 Nicotine dependence, other tobacco product, uncomplicated; Z96.652 Presence of left artificial knee joint; W10.2XXA Fall (on)(from) incline, initial encounter
CPT/HCPCS: 29515; 73562; 73610; 73630; 99284; A9270